=== PATIENT | female | born 1965 | race Caucasian/White ===

== ENCOUNTER 2023-04-24 08:05 | Outpatient (OUT) | payer BC, SELFPAY ==
--- NOTE | 2023-04-24 08:11 | MM_ITS ---
Patient: RADHA CASTRO Exam Date: 04/24/2023 : 1965 Gender:F Ordering : DR WILLIAM SAGASTUME . Admission #: [id number] Family : Order #: [id number] CLICK HERE TO VIEW EXAM RADIOLOGY REPORT PROCEDURE: MM TOMOSYNTHESIS SCREENING BI COMPARISON: MG MAMM SCREEN 3D SHON CAD, 04/19/2022. MG MAMM SCREEN 3D SHON CAD, 02/25/2021. MG MAMM SCREEN SHON W CAD, 02/25/2020. MG MAMM SHON SCRN W CAD DIG, 03/19/2013. INDICATIONS: Screening Calculator Name NCI Breast Cancer Risk Assessment Tool 5 Year Breast Cancer Risk 1.40% Lifetime Breast Cancer Risk 8.90% Personal Breast Cancer No Personal Ovarian Cancer No Treatments None Family Cancers Grandmother-maternal with breast cancer at age 87. LOCATION: [facility] BREAST COMPOSITION: Heterogeneously dense,which may obscure small masses. FINDINGS: DIAGNOSTIC CATEGORY 2--BENIGN FINDING: RIGHT BREAST: No significant suspicious finding. Scattered benign-appearing lymph nodes are present. No significant change has occurred. LEFT BREAST: No significant suspicious finding. No significant change has occurred. RECOMMENDATIONS: ROUTINE MAMMOGRAM AND CLINICAL EVALUATION IN 12 MONTHS. PLEASE NOTE: A NORMAL MAMMOGRAM DOES NOT EXCLUDE THE POSSIBILITY OF BREAST CANCER. A CLINICALLY SUSPICIOUS PALPABLE LUMP SHOULD BE BIOPSIED. Dictated by: Braydon Cedeño M.D. on 04/25/2023 at 08:59 Approved by: Braydon Cedeño M.D. on 04/25/2023 at 09:08
== END 2023-04-24 08:06 | disposition home or self-care (01) ==
PROVIDERS: PCP Family Medicine; Visit Provider Family Medicine
DX: Z12.31 Encounter for screening mammogram for malignant neoplasm of breast (principal)
CPT/HCPCS: 77063; 77067

== ENCOUNTER 2023-12-13 12:51 | Emergency (ER) | payer BC, SELFPAY ==
[2023-12-13] VITALS (15 sets, daily range): BP systolic 141–161; BP diastolic 64–79; PULSE 83–108; RESP 9–25; TEMP 36.5; O2SAT 98; BMI 35.8
--- NOTE | 2023-12-13 13:19 | XR_ITS ---
The [address] [address] Patient Name: RADHA CASTRO MRN: [id number] date: 1965 Sex: F Assigned Patient Location: ER Current Patient Location: ER Accession/Order Number: [id number] Exam Date: 12/13/2023 13:54 Report Date: 12/13/2023 14:07 At the request of: MARTINA FRANCISCO Procedure: XR chest 1V EXAMINATION: XR chest 1V HISTORY: Dizzy COMPARISON: No relevant comparison available. TECHNIQUE: AP portable FINDINGS: LUNGS: No significant pulmonary parenchymal abnormalities. VASCULATURE: No increased pulmonary vasculature. PLEURA: No pneumothorax, effusion, or pleural thickening. CARDIAC: No cardiomegaly or cardiac silhouette abnormality. MEDIASTINUM: No visible mass or adenopathy. BONES: No fracture or visible bone lesion. OTHER: Negative. XR/XR chest 1V IMPRESSION: No acute cardiopulmonary process Electronically authenticated by: LAURIE JOHN Date: 12/13/2023 14:07
--- NOTE | 2023-12-13 13:19 | ECG_ITS ---
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
--- NOTE | 2023-12-13 13:20 | CT_ITS ---
The [address] [address] Patient Name: RADHA CASTRO MRN: [id number] date: 1965 Sex: F Assigned Patient Location: ED.MAIN Current Patient Location: Accession/Order Number: [id number] Exam Date: 12/13/2023 13:54 Report Date: 12/13/2023 14:13 At the request of: MARTINA FRANCISCO Procedure: CT head/brain wo con EXAM: CT head/brain wo con HISTORY: Dizziness. Patient started new blood pressure medication. COMPARISON: None. TECHNIQUE: Contiguous transaxial images were obtained from skull base to vertex without administration of intravenous contrast. Dose reduction: mA and/or kV are were adjusted by automated exposure control software based upon patients height and weight. FINDINGS: There is no focal scalp soft tissue swelling or acute calvarial fracture. The visualized globes and orbits are grossly normal. Visualized paranasal sinuses are clear. Bilateral mastoid air cells are clear. The ventricles and sulci are normal and symmetric bilaterally. There is no intraparenchymal hemorrhage, extraaxial fluid collection, mass lesion, or acute large territory ischemia by noncontrast CT. CT/CT head/brain wo con IMPRESSION: 1. No acute intracranial hemorrhage or acute large territory ischemia by noncontrast CT. If the patient has a focal neurologic deficit or there is clinical suspicion for acute cerebrovascular accident, brain MRI would be recommended for further evaluation. Electronically authenticated by: REBECA BURRIS Date: 12/13/2023 14:13
--- NOTE | 2023-12-13 13:22 | ED_ITS ---
Documented by User: [email or web address] Magallanes 12/13/23 14:49 HPI - General Adult General Chief complaint: Dizziness Stated complaint: DIZZINESS/BLOOD PRESSURE Time Seen by Provider: 12/13/23 13:11 Source: patient Limitations: no limitations History of Present Illness HPI narrative: Patient is a 58-year-old female who presents to the emergency department for evaluation of an abrupt onset of dizziness where she felt like she was going to pass out while she was at a work meeting at the [employer] across the parking lot from this hospital. She states that she left the meeting and went out to the parking lot, she felt as though she was spinning. She had no headache, falls, visual changes, peripheral paresthesias. No chest pain or shortness of breath. She thought that she may have had an increase in her blood pressure she was recently diagnosed with high blood pressure and started on losartan. She was also recently started on trazodone for sleep and hydroxyzine for anxiety. At time of arrival to the ER, patient states she feels better. She has not had any recent illness, fevers, cough, congestion, nausea, vomiting. She has no peripheral paresthesias. She states she has had vertigo before in the past but this feels different. Related Data Home Medications Medication Instructions Recorded Confirmed hydroxyzine HCl 10 mg tablet 10 mg PO Q6H PRN anxiety 12/13/23 12/13/23 losartan 100 mg tablet 100 mg PO DAILY 12/13/23 12/13/23 trazodone 50 mg tablet 25 mg PO BEDTIME 12/13/23 12/13/23 Previous Rx's Medication Instructions Recorded meclizine 25 mg chewable tablet 25 mg PO QID PRN dizziness #12 tabs 12/13/23 (Antivert) ondansetron 4 mg disintegrating 4 mg PO Q6H PRN nausea and 12/13/23 tablet vomiting #12 tabs Allergies Allergy/AdvReac Type Severity Reaction Status Date / Time No Known Drug Allergies Allergy Verified 12/13/23 13:12 Review of Systems ROS Constitutional Denies: fever or chills Eyes Denies: change in vision Ears, nose, mouth, and throat Denies: throat pain or nasal congestion Cardiovascular Denies: chest pain Respiratory Denies: shortness of breath or cough Gastrointestinal Denies: nausea or vomiting Musculoskeletal Denies: back pain or neck pain Integumentary/Breast Denies: rash Neurological Reports: dizziness and vertigo; Denies: headache, numbness in extremities or weakness in extremities Endocrine Denies: excessive urination Hematologic/Lymphatic Denies: easy bruising PFSH PFSH Social History Smoking status: Former smoker Exam Narrative Exam Narrative: Gen.: Awake, alert, in no distress Head: Normocephalic, atraumatic ENT: Moist mucous membranes, Bilateral TMs clear Respiratory: No respiratory distress, lungs clear bilaterally Cardio: Regular rate and rhythm Extremities: Moves extremities equally Psych: Normal mood and affect Neuro: No focal neuro deficit Skin: Warm, dry, intact Constitutional Vital Signs, click to edit/add: Last Vital Signs Temp 97.7 F 12/13/23 12:57 Pulse 83 12/13/23 14:50 Resp 9 L 12/13/23 14:50 BP 141/64 12/13/23 14:11 Pulse Ox 98 12/13/23 13:13 O2 Del Method Room Air 12/13/23 12:57 Course Vital Signs Vital signs: Vital Signs Temperature 97.7 F 12/13/23 12:57 Pulse Rate 108 H 12/13/23 12:57 Respiratory Rate 20 12/13/23 12:57 Blood Pressure 161/78 H 12/13/23 12:57 Pulse Oximetry 98 12/13/23 12:57 Oxygen Delivery Method Room Air 12/13/23 12:57 Temperature 97.7 F 12/13/23 12:57 Pulse Rate 83 12/13/23 14:50 Respiratory Rate 9 L 12/13/23 14:50 Blood Pressure 141/64 12/13/23 14:11 Pulse Oximetry 98 12/13/23 13:13 Oxygen Delivery Method Room Air 12/13/23 12:57 Medical Decision Making MDM Narrative Medical decision making narrative: Patient treated with IV fluids, Antivert in the ER. She has stable vital signs, CT of the brain, chest x-ray, EKG and labs are unremarkable. Urine specimen is contaminated, I discussed this with the patient and we will wait for culture before treatment. She is comfortable with this. She is discharged home on Antivert and Zofran to follow-up with her PCP. Return to the ER if symptoms change or worsen. Medical Records Medical records reviewed: Yes I reviewed the patient's medical records Lab Data Lab results reviewed: Yes I reviewed the patient's lab results Labs: Lab Results 12/13/23 12/13/23 Range/Units 13:35 13:40 WBC 9.1 (4.0-11.0) 10^3/uL RBC 4.72 (4.20-5.40) 10^6/uL Hgb 12.9 (12.0-16.0) g/dL Hct 40.1 (36.0-48.0) % MCV 85.0 (81.0-99.0) fL MCH 27.3 (26.7-34.0) pg MCHC 32.2 (29.9-35.2) g/dL RDW 13.2 (11.0-15.0) % Plt Count 383 (150-450) 10^3/uL MPV 10.5 (9.5-13.5) fL Neut % (Auto) 47.8 (43.0-75.0) % Lymph % (Auto) 40.7 (20.5-60.0) % [place] % (Auto) 8.6 (1.7-12.0) % Eos % (Auto) 2.0 (0.9-7.0) % Baso % (Auto) 0.7 (0.2-2.0) % Neut # (Auto) 4.4 (1.4-6.5) 10^3/uL Lymph # (Auto) 3.7 (1.2-3.8) 10^3/uL [place] # (Auto) 0.8 (0.3-0.8) 10^3/uL Eos # (Auto) 0.2 (0.0-0.7) 10^3/uL Baso # (Auto) 0.1 (0.0-0.1) 10^3/uL Abs Immat Gran (auto) 0.02 (0.00-0.03) 10^3/uL Imm/Tot Granulo (auto) 0.2 (0.0-0.5) % PT 10.2 (9.0-11.6) sec INR 0.96 Sodium 140 (136-145) mmol/L Potassium 4.1 (3.5-5.1) mmol/L Chloride 104 (98-107) mmol/L Carbon Dioxide 27.8 (21.0-32.0) mmol/L Anion Gap 12.3 BUN 15.0 (7.0-18.0) mg/dL Creatinine 0.59 (0.55-1.02) mg/dL Est GFR ( Amer) >60 (>=60) Est GFR (Non-Af Amer) >60 (>=60) BUN/Creatinine Ratio 25.4 Glucose 137 H (74-106) mg/dL Calcium 9.2 (8.5-10.1) mg/dL Total Bilirubin 0.2 (0.2-1.0) mg/dL AST 20 (15-37) U/L ALT 33 (14-59) U/L Alkaline Phosphatase 67 (46-116) U/L Troponin I High Sens 16.6 (4.0-51.3) pg/mL Total Protein 7.2 (6.4-8.2) g/dL Albumin 3.2 L (3.4-5.0) g/dL Globulin 4.0 g/dL Albumin/Globulin Ratio 0.8 TSH <0.007 L (0.358-3.740) uIU/mL Urine Color Lt. yellow (YELLOW) Urine Clarity Clear (CLEAR) Urine pH 6.5 (5.0-9.0) Ur Specific [place] <=1.005 A (1.005-1.025) Urine Protein Negative (NEG/TRACE) mg/dL Urine Glucose (UA) Negative (NEGATIVE) mg/dL Urine Ketones Negative (NEGATIVE) mg/dL Urine Occult Blood Small A (NEGATIVE) Urine Nitrite Negative (NEGATIVE) Urine Bilirubin Negative (NEGATIVE) Urine Urobilinogen 0.2 (0.2-1.0) EU/dL Ur Leukocyte Esterase Small A (NEGATIVE) Urine RBC 2-5 A (0-2) #/HPF Urine WBC 2-5 A (NONE SEEN) #/HPF Ur Squamous Epith Cells Moderate A (NONE/RARE) #/LPF Urine Crystals None seen (None Seen) #/HPF Urine Bacteria Small A (NONE SEEN) #/HPF Urine Casts None seen (NONE SEEN) #/LPF Urine Mucus None seen (NONE SEEN) Ur Culture Indicated? Yes Imaging Data CT scan - head: Attestation: I have reviewed the pertinent imaging results. Radiologist's impression: ITS Impressions Chest X-Ray 12/13/23 13:19 IMPRESSION: No acute cardiopulmonary process Electronically authenticated by: LAURIE JOHN Date: 12/13/2023 14:[address] 12/13/23 13:20 IMPRESSION: 1. No acute intracranial hemorrhage or acute large territory ischemia by noncontrast CT. If the patient has a focal neurologic deficit or there is clinical suspicion for acute cerebrovascular accident, brain MRI would be recommended for further evaluation. Electronically authenticated by: REBECA BURRIS Date: 12/13/2023 14:13 ECG Data Attestation: I personally reviewed and interpreted this ECG as follows: (Normal sinus rhythm at a rate of 92, right bundle branch block, no acute ST elevation or ectopy. EKG reviewed by attending physician) Discharge Plan Discharge Chief Complaint: Dizziness Clinical Impression: Dizziness Patient Disposition: Home, Self-Care Time of Disposition Decision: 14:48 Condition: Good Prescriptions / Home Meds: New ondansetron 4 mg tablet,disintegrating 4 mg PO Q6H PRN (Reason: nausea and vomiting) Qty: 12 0RF meclizine [Antivert] 25 mg tablet,chewable 25 mg PO QID PRN (Reason: dizziness) Qty: 12 0RF No Action hydroxyzine HCl 10 mg tablet 10 mg PO Q6H PRN (Reason: anxiety) losartan 100 mg tablet 100 mg PO DAILY trazodone 50 mg tablet 25 mg PO BEDTIME Instructions: Dizziness (ED) Stand Alone Forms: Portal Instructions Referrals: FEDERICO JIMENEZ [Primary Care Provider] - 1 week Discharge Date/Time: 12/13/23 15:02 Documented by User: Adrian Reyna MD 12/13/23 20:27 HPI - General Adult General Chief complaint: Dizziness Stated complaint: DIZZINESS/BLOOD PRESSURE Time Seen by Provider: 12/13/23 13:11 Related Data Home Medications Medication Instructions Recorded Confirmed hydroxyzine HCl 10 mg tablet 10 mg PO Q6H PRN anxiety 12/13/23 12/13/23 losartan 100 mg tablet 100 mg PO DAILY 12/13/23 12/13/23 trazodone 50 mg tablet 25 mg PO BEDTIME 12/13/23 12/13/23 Previous Rx's Medication Instructions Recorded meclizine 25 mg chewable tablet 25 mg PO QID PRN dizziness #12 tabs 12/13/23 (Antivert) ondansetron 4 mg disintegrating 4 mg PO Q6H PRN nausea and 12/13/23 tablet vomiting #12 tabs Allergies Allergy/AdvReac Type Severity Reaction Status Date / Time No Known Drug Allergies Allergy Verified 12/13/23 13:12 PFSH PFS Social History Smoking status: Former smoker Exam Constitutional Vital Signs, click to edit/add: Last Vital Signs Temp 97.7 F 12/13/23 12:57 Pulse 83 12/13/23 14:50 Resp 9 L 12/13/23 14:50 BP 141/64 12/13/23 14:11 Pulse Ox 98 12/13/23 13:13 O2 Del Method Room Air 12/13/23 12:57 Course Vital Signs Vital signs: Vital Signs Temperature 97.7 F 12/13/23 12:57 Pulse Rate 108 H 12/13/23 12:57 Respiratory Rate 20 12/13/23 12:57 Blood Pressure 161/78 H 12/13/23 12:57 Pulse Oximetry 98 12/13/23 12:57 Oxygen Delivery Method Room Air 12/13/23 12:57 Temperature 97.7 F 12/13/23 12:57 Pulse Rate 83 12/13/23 14:50 Respiratory Rate 9 L 12/13/23 14:50 Blood Pressure 141/64 12/13/23 14:11 Pulse Oximetry 98 12/13/23 13:13 Oxygen Delivery Method Room Air 12/13/23 12:57 Medical Decision Making MDM Narrative Medical decision making narrative: Patient treated with IV fluids, Antivert in the ER. She has stable vital signs, CT of the brain, chest x-ray, EKG and labs are unremarkable. Urine specimen is contaminated, I discussed this with the patient and we will wait for culture before treatment. She is comfortable with this. She is discharged home on Antivert and Zofran to follow-up with her PCP. Return to the ER if symptoms change or worsen. I, Dr Reyna, have reviewed the above progress note and course of action in the ER; agree with the above. I have gone over history and physical, and discussed disposition and treatment plan with the patient. Lab Data Labs: Lab Results 12/13/23 12/13/23 Range/Units 13:35 13:40 WBC 9.1 (4.0-11.0) 10^3/uL RBC 4.72 (4.20-5.40) 10^6/uL Hgb 12.9 (12.0-16.0) g/dL Hct 40.1 (36.0-48.0) % MCV 85.0 (81.0-99.0) fL MCH 27.3 (26.7-34.0) pg MCHC 32.2 (29.9-35.2) g/dL RDW 13.2 (11.0-15.0) % Plt Count 383 (150-450) 10^3/uL MPV 10.5 (9.5-13.5) fL Neut % (Auto) 47.8 (43.0-75.0) % Lymph % (Auto) 40.7 (20.5-60.0) % [place] % (Auto) 8.6 (1.7-12.0) % Eos % (Auto) 2.0 (0.9-7.0) % Baso % (Auto) 0.7 (0.2-2.0) % Neut # (Auto) 4.4 (1.4-6.5) 10^3/uL Lymph # (Auto) 3.7 (1.2-3.8) 10^3/uL [place] # (Auto) 0.8 (0.3-0.8) 10^3/uL Eos # (Auto) 0.2 (0.0-0.7) 10^3/uL Baso # (Auto) 0.1 (0.0-0.1) 10^3/uL Abs Immat Gran (auto) 0.02 (0.00-0.03) 10^3/uL Imm/Tot Granulo (auto) 0.2 (0.0-0.5) % PT 10.2 (9.0-11.6) sec INR 0.96 Sodium 140 (136-145) mmol/L Potassium 4.1 (3.5-5.1) mmol/L Chloride 104 (98-107) mmol/L Carbon Dioxide 27.8 (21.0-32.0) mmol/L Anion Gap 12.3 BUN 15.0 (7.0-18.0) mg/dL Creatinine 0.59 (0.55-1.02) mg/dL Est GFR ( Amer) >60 (>=60) Est GFR (Non-Af Amer) >60 (>=60) BUN/Creatinine Ratio 25.4 Glucose 137 H (74-106) mg/dL Calcium 9.2 (8.5-10.1) mg/dL Total Bilirubin 0.2 (0.2-1.0) mg/dL AST 20 (15-37) U/L ALT 33 (14-59) U/L Alkaline Phosphatase 67 (46-116) U/L Troponin I High Sens 16.6 (4.0-51.3) pg/mL Total Protein 7.2 (6.4-8.2) g/dL Albumin 3.2 L (3.4-5.0) g/dL Globulin 4.0 g/dL Albumin/Globulin Ratio 0.8 TSH <0.007 L (0.358-3.740) uIU/mL Urine Color Lt. yellow (YELLOW) Urine Clarity Clear (CLEAR) Urine pH 6.5 (5.0-9.0) Ur Specific [place] <=1.005 A (1.005-1.025) Urine Protein Negative (NEG/TRACE) mg/dL Urine Glucose (UA) Negative (NEGATIVE) mg/dL Urine Ketones Negative (NEGATIVE) mg/dL Urine Occult Blood Small A (NEGATIVE) Urine Nitrite Negative (NEGATIVE) Urine Bilirubin Negative (NEGATIVE) Urine Urobilinogen 0.2 (0.2-1.0) EU/dL Ur Leukocyte Esterase Small A (NEGATIVE) Urine RBC 2-5 A (0-2) #/HPF Urine WBC 2-5 A (NONE SEEN) #/HPF Ur Squamous Epith Cells Moderate A (NONE/RARE) #/LPF Urine Crystals None seen (None Seen) #/HPF Urine Bacteria Small A (NONE SEEN) #/HPF Urine Casts None seen (NONE SEEN) #/LPF Urine Mucus None seen (NONE SEEN) Ur Culture Indicated? Yes Imaging Data CT scan - head: Radiologist's impression: ITS Impressions Chest X-Ray 12/13/23 13:19 IMPRESSION: No acute cardiopulmonary process Electronically authenticated by: LAURIE JOHN Date: 12/13/2023 14:[address] 12/13/23 13:20 IMPRESSION: 1. No acute intracranial hemorrhage or acute large territory ischemia by noncontrast CT. If the patient has a focal neurologic deficit or there is clinical suspicion for acute cerebrovascular accident, brain MRI would be recommended for further evaluation. Electronically authenticated by: REBECA BURRIS Date: 12/13/2023 14:13 Discharge Plan Discharge Chief Complaint: Dizziness Clinical Impression: Dizziness Patient Disposition: Home, Self-Care Time of Disposition Decision: 14:48 Condition: Good Prescriptions / Home Meds: New ondansetron 4 mg tablet,disintegrating 4 mg PO Q6H PRN (Reason: nausea and vomiting) Qty: 12 0RF meclizine [Antivert] 25 mg tablet,chewable 25 mg PO QID PRN (Reason: dizziness) Qty: 12 0RF No Action hydroxyzine HCl 10 mg tablet 10 mg PO Q6H PRN (Reason: anxiety) losartan 100 mg tablet 100 mg PO DAILY trazodone 50 mg tablet 25 mg PO BEDTIME Instructions: Dizziness (ED) Stand Alone Forms: Portal Instructions Referrals: FEDERICO JIMENEZ [Primary Care Provider] - 1 week Discharge Date/Time: 12/13/23 15:02
[2023-12-13 13:49] LABS: Basophils Absolute Auto 0.1 10^3/uL (0.0-0.1); Basophils Percent Auto 0.7 % (0.2-2.0); Eosinophils Absolute Auto 0.2 10^3/uL (0.0-0.7); Hematocrit 40.1 % (36.0-48.0); Hemoglobin 12.9 g/dL (12.0-16.0); Immature Granulocytes Abs Auto 0.02 10^3/uL (0.00-0.03); Immature Granulocytes Pct Auto 0.2 % (0.0-0.5); Lymphocytes Absolute Auto 3.7 10^3/uL (1.2-3.8); Lymphocytes Percent Auto 40.7 % (20.5-60.0); Mean Corpuscular HGB Conc 32.2 g/dL (29.9-35.2); Mean Corpuscular Hemoglobin 27.3 pg (26.7-34.0); Mean Platelet Volume 10.5 fL (9.5-13.5); Monocytes Absolute Auto 0.8 10^3/uL (0.3-0.8); Monocytes Percent Auto 8.6 % (1.7-12.0); Neutrophils Absolute Auto 4.4 10^3/uL (1.4-6.5); Neutrophils Percent Auto 47.8 % (43.0-75.0); Platelet Count 383 10^3/uL (150-450); Red Blood Count 4.72 10^6/uL (4.20-5.40); Red Cell Distribution Width 13.2 % (11.0-15.0); White Blood Count 9.1 10^3/uL (4.0-11.0)
[2023-12-13 13:50] LABS: Bilirubin Urine NEGATIVE (NEGATIVE); Blood Urine SMALL (NEGATIVE); Clarity Urine CLEAR (CLEAR); Color Urine LT. YELLOW (YELLOW); Glucose Urine UA NEGATIVE (NEGATIVE); Ketones Urine NEGATIVE (NEGATIVE); Leukocyte Esterase Urine SMALL (NEGATIVE); Nitrite Urine NEGATIVE (NEGATIVE); Protein Urine NEGATIVE (NEG/TRACE); Specific Gravity Urine <=1.005 (1.005-1.025); Urobilinogen Urine 0.2 EU/dL (0.2-1.0); pH Urine 6.5 (5.0-9.0)
[2023-12-13 13:54] LABS: Urine Microscopic Indicated YES
[2023-12-13 13:57] LABS: Bacteria Urine SMALL #/HPF (NONE SEEN); Mucus Urine NONE SEEN (NONE SEEN)
[2023-12-13 13:58] LABS: Cast Seen? NONE SEEN #/LPF (NONE SEEN); Crystals Seen? None Seen #/HPF (None Seen); Squamous Epithelial Cell Urine MODERATE #/LPF (NONE/RARE); Urine Culture Indicated YES
[2023-12-13 14:01] LABS: Alanine Aminotransferase 33 U/L (14-59); Albumin Globulin Ratio 0.8; Albumin Level 3.2 g/dL (3.4-5.0); Alkaline Phosphatase 67 U/L (46-116); Anion Gap 12.3; Aspartate Amino Transferase 20 U/L (15-37); BUN Creatinine Ratio 25.4; Bilirubin Total 0.2 mg/dL (0.2-1.0); Calcium 9.2 mg/dL (8.5-10.1); Carbon Dioxide 27.8 mmol/L (21.0-32.0); Chloride 104 mmol/L (98-107); Estimated GFR (African America >60 (>=60); Estimated GFR (Non-African Ame >60 (>=60); Glucose 137 mg/dL (74-106); Potassium 4.1 mmol/L (3.5-5.1); Sodium 140 mmol/L (136-145); Total Protein 7.2 g/dL (6.4-8.2)
[2023-12-13 14:02] LABS: INR 0.96; Prothrombin Time 10.2 sec (9.0-11.6)
[2023-12-13 14:04] LABS: Troponin I High Sensitivity 16.6 pg/mL (4.0-51.3)
[2023-12-13] MEDS: MECLIZINE HCL 12.5 MG TABLET 25 MG PO (14:05)
[2023-12-13] MEDS: 0.9 % SODIUM CHLORIDE 1,000 ML 1000 ML IV (14:06)
[2023-12-13 14:09] LABS: Thyroid Stimulating Hormone <0.007 uIU/mL (0.358-3.740)
== END 2023-12-13 15:02 | disposition home or self-care (01) ==
PROVIDERS: Physician Assistant; Emergency Provider Emergency Medicine; PCP Family Medicine
DX: R42 Dizziness and giddiness (principal); Z79.899 Other long term (current) drug therapy; Z87.891 Personal history of nicotine dependence
CPT/HCPCS: 36415; 70450; 71045; 80053; 81001; 84443; 84484; 85025; 85610; 87086; 93005; 99285

== ENCOUNTER 2024-04-26 09:25 | Outpatient (OUT) | payer BC, SELFPAY ==
--- NOTE | 2024-04-26 09:27 | MM_ITS ---
Patient Name: RADHA CASTRO MR#: [id number] : 1965 Exam Date: 04/26/2024 Ordering Doctor: DR WILLIAM SAGASTUME . RADIOLOGY REPORT PROCEDURE: MM TOMOSYNTHESIS SCREENING BI COMPARISON: MG MAMM SCREEN 3D SHON CAD, 04/19/2022. MM TOMOSYNTHESIS SCREENING BI, 04/24/2023. INDICATIONS: Screening Calculator Name NCI Breast Cancer Risk Assessment Tool 5 Year Breast Cancer Risk 1.40% Lifetime Breast Cancer Risk 8.70% Personal Breast Cancer No Personal Ovarian Cancer No Treatments None Family Cancers Grandmother-maternal with breast cancer at age 87. LOCATION: [facility] BREAST COMPOSITION: The breasts are heterogeneously dense,which may obscure small masses. FINDINGS: DIAGNOSTIC CATEGORY 2--BENIGN FINDING. NO CHANGE FROM COMPARISON. Scattered benign-appearing lymph nodes are present. RIGHT BREAST: No significant suspicious finding. LEFT BREAST: No significant suspicious finding. RECOMMENDATIONS: ROUTINE MAMMOGRAM AND CLINICAL EVALUATION IN 12 MONTHS. PLEASE NOTE: A NORMAL MAMMOGRAM DOES NOT EXCLUDE THE POSSIBILITY OF BREAST CANCER. A CLINICALLY SUSPICIOUS PALPABLE LUMP SHOULD BE BIOPSIED. Dictated by: Joby Villanueva MD on 04/26/2024 at 12:54 Approved by: Joby Villanueva MD on 04/26/2024 at 12:55
== END 2024-04-26 09:26 | disposition home or self-care (01) ==
LOC: MAMMO 09:25
PROVIDERS: PCP Family Medicine; Visit Provider Family Medicine
DX: Z12.31 Encounter for screening mammogram for malignant neoplasm of breast (principal); Z80.3 Family history of malignant neoplasm of breast
CPT/HCPCS: 77063; 77067